=== PATIENT | male | born 1980 | race Caucasian/White ===

== ENCOUNTER 2023-04-03 19:32 | Emergency (ER) | payer OTHER ==
[~2023-04-03] VITALS: Ht 172.7 cm; Wt 74.8 kg
[2023-04-03 21:48] VITALS: BP 124/77
== END 2023-04-03 21:50 | disposition home or self-care (01) ==
LOC: ED 19:32
DX: S81.812A Laceration without foreign body, left lower leg, initial encounter (principal); W22.8XXA Striking against or struck by other objects, initial encounter
CPT/HCPCS: 12002; 99282